=== PATIENT | female | born 1935 | race Two or more races ===

== ENCOUNTER 2017-10-30 13:02 | Day surgery (SDC) | payer MEDICARE, BC ==
[~2017-10-30] VITALS: Ht 149.9 cm; Wt 86.2 kg
[~2017-10-30 13:02] MED LIST: FAMO20 PO; SUCR1 PO; SULTRIDS PO
[2017-10-30] MEDS ORDERED: LOSA50 (14:05)
[2017-10-30] MEDS ORDERED: ASPI81CH (14:05)
[2017-10-30] MEDS ORDERED: PRAV20 (14:05)
[2017-10-30] MEDS ORDERED: LEVSOD50 (14:06)
== END 2017-10-30 16:03 | disposition home or self-care (01) ==
LOC: ORSCSDS 13:02
PROVIDERS: Internal Medicine Gastroenterology
PROC: 0DBM8ZX Excision of Descending Colon, Via Natural or Artificial Opening Endoscopic, Diagnostic (ICD-10-PCS; principal; 2017-10-30 14:30)
DX: Z12.11 Encounter for screening for malignant neoplasm of colon (principal); K63.5 Polyp of colon; K57.30 Diverticulosis of large intestine without perforation or abscess without bleeding; I10 Essential (primary) hypertension; E07.9 Disorder of thyroid, unspecified; Z79.899 Other long term (current) drug therapy
CPT/HCPCS: 88305

== ENCOUNTER 2019-02-11 08:52 | Day surgery (SDC) | payer MEDICARE, BC ==
[~2019-02-11 08:52] MED LIST changes: +ASPI81CH; +LEVSOD50; +LOSA50; +PRAV20
[2019-02-13 14:58] LABS: Performing Lab SYMBIODX; Test Name TISS BIOPSY
[2019-02-25 20:04] LABS: Result SEE PATHOTH RESULTS
== END 2019-02-11 22:53 | disposition home or self-care (01) ==
LOC: US 08:52
PROVIDERS: Physician Assistant
DX: R59.0 Localized enlarged lymph nodes (principal)
CPT/HCPCS: 38505; 76942; 88305; 88341; 88342